=== PATIENT | female | born 1985 | race Caucasian/White ===

== ENCOUNTER 2018-12-02 13:38 | Emergency (ER) | payer MEDICAID | END 2018-12-02 16:08 | disposition home or self-care (01) | LOC: E/R 13:38 | DX: O26.892 Other specified pregnancy related conditions, second trimester (principal); R10.2 Pelvic and perineal pain; Z3A.15 15 weeks gestation of pregnancy | CPT/HCPCS: 36415; 76805; 84702; 99284-25 ==